=== PATIENT | female | born 1995 | race African-American/Black ===

== ENCOUNTER 2016-12-08 18:48 | Emergency (ER) | payer MEDICAID ==
[~2016-12-08] VITALS: Ht 160 cm; Wt 59.0 kg
[2016-12-08 19:25] VITALS: BP 116/78
[2016-12-08] MEDS ORDERED: Norco 7.5mg/325mg tab ORAL ONE (19:45)
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
[2016-12-08] MEDS ORDERED: IBUPROFEN600 MG ORAL (20:41)
[2016-12-08] MEDS ORDERED: CYCLOBENZAPRINE10 MG ORAL (20:41)
[2016-12-08 20:55] VITALS: BP 116/78
--- NOTE | 2016-12-09 16:17 | Diagnostic Imaging Report ---
Indication: PAIN Technique: 3 views right hand Comparison: none Findings: Surgical hardware seen reducing old healed fifth metacarpal shaft fracture. No acute fractures. No dislocations. The joint spaces are preserved Impression: No acute bony trauma
== END 2016-12-08 20:55 | disposition home or self-care (01) ==
LOC: EMR 19:26
DX: S16.1XXA Strain of muscle, fascia and tendon at neck level, initial encounter (principal); S60.041A Contusion of right ring finger without damage to nail, initial encounter; S20.212A Contusion of left front wall of thorax, initial encounter; S10.81XA Abrasion of other specified part of neck, initial encounter; Y08.89XA Assault by other specified means, initial encounter; Y92.811 Bus as the place of occurrence of the external cause; J45.909 Unspecified asthma, uncomplicated
CPT/HCPCS: 99284

== ENCOUNTER 2017-04-21 12:30 | Emergency (ER) | payer MEDICAID ==
[~2017-04-21] VITALS: Ht 157.5 cm; Wt 59.0 kg
[~2017-04-21 12:30] MED LIST: CYCLOBENZAPRINE10 MG ORAL; IBUPROFEN600 MG ORAL
[2017-04-21] MEDS: Albuterol ud Inhalation HHN ONE (13:15)
[2017-04-21] MEDS: Ipratropium 0.02% Inh Soln 2.5ml UD HHN ONE (13:16)
[2017-04-21] MEDS ORDERED: PREDNISONE20 MG ORAL (13:54)
[2017-04-21] MEDS ORDERED: ADVAIR 250-501 EACH INH (13:54)
[2017-04-21 14:10] VITALS: BP 111/74
--- NOTE | 2017-04-21 18:01 | Emergency Room Report ---
History of Present Illness General Chief Complaint: Asthma Source: Patient Present Illness HPI The patient is a 22-year-old female with a history of asthma presenting for increased shortness of breath and cough since yesterday. She states that this does feel like asthma for her. She has tried albuterol at home which has not been helping. She denies any recent travel or sick contacts. She denies other symptoms including fever, chills, dizziness, neck pain or stiffness, rash, hemoptysis, chest pain Allergies: Coded Allergies: No Known Allergies (Unverified , 12/08/16) Patient History Past Medical History: see triage record Pertinent Family History: none Last Menstrual Period: 03/20/2017 Reviewed Nursing Documentation: PMH: Agreed, PSxH: Agreed Nursing Documentation-PMH Past Medical History: No History, Except For Hx Asthma: Yes Review of Systems All Other Systems: negative except mentioned in HPI Physical Exam Vital Signs Date Time Temp Pulse Resp B/P (MAP) Pulse Ox O2 Delivery O2 Flow Rate FiO2 04/21/17 12:33 98.1 83 16 121/82 99 Room Air 04/21/17 12:45 94 Sp02 EP Interpretation: reviewed, normal General Appearance: no apparent distress, alert, GCS 15, non-toxic Head: normocephalic, atraumatic Eyes: bilateral eye normal inspection, bilateral eye PERRL ENT: hearing grossly normal, normal pharynx, no angioedema, normal voice, uvula midline Neck: full range of motion, supple/symm/no masses Respiratory: no respiratory distress, no accessory muscle use, decreased breath sounds, wheezing - bilat Cardiovascular #1: regular rate, rhythm, no edema Gastrointestinal: normal bowel sounds, non tender, soft, non-distended, no guarding, no rebound Musculoskeletal: back normal, gait/station normal, normal range of motion, non- tender Neurologic: alert, oriented x3, responsive, motor strength/tone normal, sensory intact, speech normal Psychiatric: judgement/insight normal, memory normal, mood/affect normal, no suicidal/homicidal ideation Skin: normal color, no rash, warm/dry, well hydrated Lymphatic: no adenopathy Medical Decision Making PA Attestation Dr. Kee is my supervising physician. Patient management was discussed with my supervising physician Diagnostic Impression: Primary Impression: Asthma Qualified Codes: J45.21 - Mild intermittent asthma with (acute) exacerbation ER Course The patient is a 22-year-old female with a history of asthma presenting for increased shortness of breath and cough since yesterday Differential diagnoses considered but not limited to: Asthma exacerbation, bronchitis, pneumonia, anxiety Physical exam: Vitals within normal limits. No apparent distress HEENT exam is unremarkable Lungs: Decreased breath sounds bilaterally. Chest is nontender. No respiratory distress. No accessory muscle use. The patient was given a breathing treatment and is feeling much better. Lungs sounds have improved Patient is discharged home with a prescription for oral steroids and advair and will followup with PMD. ER precautions are given Last Vital Signs Date Time Temp Pulse Resp B/P (MAP) Pulse Ox O2 Delivery O2 Flow Rate FiO2 04/21/17 14:10 98.1 100 18 111/74 97 Room Air 21 Status: improved Disposition: HOME, SELF-CARE Condition: Improved Scripts Fluticasone/Salmeterol (Advair 250-50 Diskus) 1 Each Blst.w.dev 1 PUFF INH EVERY 12 HOURS, #1 EA Prov: CARLEEN CISNEROS 04/21/17 Prednisone* (PREDNISONE*) 20 Mg Tablet 40 MG ORAL DAILY, #8 TAB Prov: CARLEEN CISNEROS 04/21/17 Referrals: [facility] (PCP) Patient Instructions: Asthma, Adult Additional Instructions: I discussed my findings with the patient. All questions and concerns have been answered. Treatment and medication compliance have been addressed. I advised the patient that they need to follow up with PMD in 3-5 days. Return to ED if symptoms worsen, new symptoms arise, or if needed for any reason. Patient verbalized understanding of discharge instructions. CARLEEN CISNEROS Apr 21, 2017 18:01
== END 2017-04-21 14:10 | disposition home or self-care (01) ==
LOC: EMR 13:20
DX: J45.909 Unspecified asthma, uncomplicated (principal)
CPT/HCPCS: 94640; 94664; 99284

== ENCOUNTER 2017-06-05 20:20 | Emergency (ER) | payer MEDICAID, OTHER ==
[~2017-06-05] VITALS: Ht 160 cm; Wt 56.7 kg
[~2017-06-05 20:20] MED LIST changes: +ADVAIR 250-501 EACH INH; +PREDNISONE20 MG ORAL
[2017-06-05 21:00] VITALS: BP 118/80
[2017-06-05] MEDS ORDERED: Norco 5mg/325mg tab ORAL ONE (21:30)
--- NOTE | 2017-06-05 22:21 | Emergency Room Report ---
History of Present Illness General Chief Complaint: Lower Back Pain or Injury Source: Patient Present Illness [facility] This is a 22-year-old female with no past medical history. She presents with chief complaint of back pain. She said she slipped on a wet floor at work 9 days ago. Laying on her back. Since then been having back pain. Try to go to a doctor on Monday but the clinic was busy. She was not seen. She came here with her mom who also complaining of back pain. No trauma since then. Worse with sitting for prolonged period. No nausea no vomiting. No incontinence of bowel or urine. Pain is 9/10. Allergies: Coded Allergies: No Known Allergies (Unverified , 12/08/16) Patient History Past Medical History: see triage record, old chart reviewed Past Surgical History: none Pertinent Family History: none Social History: Denies: smoking Last Menstrual Period: May Now: No Immunizations: other Reviewed Nursing Documentation: PMH: Agreed, PSxH: Agreed Nursing Documentation-PMH Hx Asthma: Yes Review of Systems Eye: Denies: eye pain, blurred vision ENT: Denies: ear pain, nose congestion, throat swelling Respiratory: Denies: cough, shortness of breath Cardiovascular: Denies: chest pain, palpitations Gastrointestinal: Denies: abdominal pain, diarrhea, nausea, vomiting Musculoskeletal: Reports: back pain, Denies: joint pain Skin: Denies: rash Neurological: Denies: headache, numbness Endocrine: Denies: increased thirst, increased urine Hematologic/Lymphatic: Denies: easy bruising All Other Systems: negative except mentioned in HPI Physical Exam Vital Signs Date Time Temp Pulse Resp B/P (MAP) Pulse Ox O2 Delivery O2 Flow Rate FiO2 06/05/17 20:55 98.1 75 18 112/79 99 Room Air vitals normal Sp02 EP Interpretation: reviewed, normal General Appearance: well appearing, no apparent distress, alert, other - Sitting comfortably Head: normocephalic, atraumatic Eyes: bilateral eye PERRL, bilateral eye EOMI ENT: hearing grossly normal, normal pharynx Neck: full range of motion, supple, no meningismus Respiratory: chest non-tender, lungs clear, normal breath sounds Cardiovascular #1: regular rate, rhythm, no murmur Gastrointestinal: normal bowel sounds, non tender, no mass, no organomegaly, no bruit, non-distended Musculoskeletal: back normal - No deformity. No ecchymosis. Tender to the thoracic and lumbar area., gait/station normal, normal range of motion Psychiatric: mood/affect normal Skin: warm/dry Medical Decision Making Diagnostic Impression: Primary Impression: Back contusion Qualified Codes: S20.229A - Contusion of unspecified back wall of thorax, initial encounter ER Course Patient presents with back contusion from a fall. She looks comfortable. I order x-rays but patient left with her mom. She was mad that we asked for a urine sample to confirm status. I explained to her that this is protocol because we're x-raying her lumbar spine which involved the pelvic area. Chest X-Ray Diagnostic Results Chest X-Ray Diagnostic Results : Chest X-Ray Ordered: Yes # of Views/Limited/Complete: 2 View EP Interpretation: No - Patient eloped Other X-Ray Diagnostic Results Other X-Ray Diagnostic Results : X-Ray ordered: Lumbar x-rays # of Views/Limited Vs Complete: 4 View EP Interpretation: No - Patient eloped Last Vital Signs Date Time Temp Pulse Resp B/P (MAP) Pulse Ox O2 Delivery O2 Flow Rate FiO2 06/05/17 22:07 98.1 88 18 118/80 99 Room Air Disposition: ELOPED Condition: Stable Referrals: [facility]REFERRING (PCP) GABRIELA QUINONES M.D. Jun 05, 2017 22:21
== END 2017-06-05 22:10 | disposition left against medical advice (07) ==
LOC: EMR 22:00
DX: S30.0XXA Contusion of lower back and pelvis, initial encounter (principal); W01.0XXA Fall on same level from slipping, tripping and stumbling without subsequent striking against object, initial encounter; Y92.89 Other specified places as the place of occurrence of the external cause; J45.909 Unspecified asthma, uncomplicated
CPT/HCPCS: 81025; 99283

== ENCOUNTER 2018-02-18 19:01 | Emergency (ER) | payer MEDICAID, OTHER ==
[~2018-02-18] VITALS: Ht 160 cm; Wt 58.5 kg
--- NOTE | 2018-02-18 19:23 | Emergency Room Report ---
History of Present Illness General Chief Complaint: Vaginal Source: Patient Present Illness HPI Patient presents with complaints of vaginal bleeding she reports that 2 weeks ago she finished her menstrual cycle soon after that she started to have some mild spotting now for the past 2 weeks she has felt continued vaginal spotting Denies any chest pain or short of breath denies any vomiting or diarrhea she has mild cramping with this Denies any dysuria frequency denies any fall or trauma Allergies: Coded Allergies: No Known Allergies (Unverified , 12/08/16) Patient History Past Medical History: see triage record Pertinent Family History: none Last Menstrual Period: 01/30/18 Now: No Reviewed Nursing Documentation: PMH: Agreed; PSxH: Agreed Nursing Documentation-PMH Past Medical History: No History, Except For Hx Asthma: Yes Review of Systems All Other Systems: negative except mentioned in HPI Physical Exam Vital Signs Date Time Temp Pulse Resp B/P (MAP) Pulse Ox O2 Delivery O2 Flow Rate FiO2 02/18/18 19:05 99.3 77 16 115/73 98 Room Air 99.3 Sp02 EP Interpretation: reviewed, normal General Appearance: well appearing, no apparent distress Head: normocephalic, atraumatic Eyes: bilateral eye PERRL, bilateral eye EOMI ENT: hearing grossly normal, normal pharynx, TMs + canals normal, uvula midline Neck: full range of motion, supple, no meningismus, no bony tend Respiratory: lungs clear, normal breath sounds, no rhonchi, no respiratory distress, no retraction, no accessory muscle use Cardiovascular #1: normal peripheral pulses, regular rate, rhythm, no edema, no gallop, no JVD, no murmur Gastrointestinal: normal bowel sounds, non tender, soft, no mass, no organomegaly, non-distended, no guarding, no hernia, no pulsatile mass, no rebound Genitourinary: no CVA tenderness Musculoskeletal: normal inspection Neurologic: oriented x3, responsive, photonic laboratory technician III-XII nml as tested, motor strength/ tone normal, sensory intact Psychiatric: mood/affect normal Skin: normal color, no rash, warm/dry, palpation normal Lymphatic: normal inspection, no adenopathy Medical Decision Making Diagnostic Impression: Primary Impression: Vaginal bleeding Additional Impression: Dysfunctional uterine bleeding ER Course With the patient's history and examination, multiple differentials considered, including but not limited to , ectopic , ovarian torsion, gastritis, cholecystitis, pancreatitis, appendicitis Patient's hemoglobin count is normal test is negative ultrasound does not reveal any acute pathology Patient remains hemodynamically stable and at this time is appropriate for close outpatient gynecology follow-up Labs Test 02/18/18 19:17 02/18/18 19:30 Urine Color Cecelia Urine Appearance Cloudy Urine pH 7 (4.5-8.0) Urine Specific [place] 1.010 (1.005-1.035) Urine Protein 1+ (NEGATIVE) Urine Glucose (UA) Negative (NEGATIVE) Urine Ketones Negative (NEGATIVE) Urine Blood 5+ (NEGATIVE) Urine Nitrite Negative (NEGATIVE) Urine Bilirubin Negative (NEGATIVE) Urine Ictotest Negative (NEGATIVE) Urine Urobilinogen 1 MG/DL (0.0-1.0) Urine Leukocyte Esterase 1+ (NEGATIVE) Urine RBC 15-20 /HPF (0 - 2) Urine WBC 2-4 /HPF (0 - 2) Urine Squamous Epithelial Cells Moderate /LPF (NONE/OCC) Urine Amorphous Sediment Many /LPF (NONE) Urine Bacteria Few /HPF (NONE) Urine HCG, Qualitative Negative (NEGATIVE) White Blood Count 7.9 K/UL (4.8-10.8) Red Blood Count 4.90 M/UL (4.20-5.40) Hemoglobin 12.9 G/DL (12.0-16.0) Hematocrit 39.8 % (37.0-47.0) Mean Corpuscular Volume 81 FL (80-99) Mean Corpuscular Hemoglobin 26.3 PG (27.0-31.0) Mean Corpuscular Hemoglobin Concent 32.3 G/DL (32.0-36.0) Red Cell Distribution Width 12.1 % (11.6-14.8) Platelet Count 264 K/UL (150-450) Mean Platelet Volume 7.1 FL (6.5-10.1) Neutrophils (%) (Auto) 38.9 % (45.0-75.0) Lymphocytes (%) (Auto) 45.5 % (20.0-45.0) Monocytes (%) (Auto) 7.1 % (1.0-10.0) Eosinophils (%) (Auto) 7.1 % (0.0-3.0) Basophils (%) (Auto) 1.4 % (0.0-2.0) CT/MRI/US Diagnostic Results CT/MRI/US Diagnostic Results : Impression pelvic ultrasound: nad Last Vital Signs Date Time Temp Pulse Resp B/P (MAP) Pulse Ox O2 Delivery O2 Flow Rate FiO2 02/18/18 19:05 99.3 77 16 115/73 98 Room Air 99.3 Status: improved Disposition: HOME, SELF-CARE Condition: Improved Additional Instructions: Patient is provided with the discharge instructions notified to follow up with primary doctor in the next 2-3 days otherwise return to the er with any worsening symptoms. Please note that this report is being documented using [employer] technology. This can lead to erroneous entry secondary to incorrect interpretation by the dictating instrument. Roberta Solis DO Feb 18, 2018 19:23
[2018-02-18 19:25] VITALS: BP 115/73
[2018-02-18 19:59] LABS: APPEARANCE,URINE CLOUDY; BILIRUBIN, URINE NEGATIVE (NEGATIVE); COLOR,URINE AMBER; GLUCOSE, URINE (UA) NEGATIVE (NEGATIVE); KETONES,URINE NEGATIVE (NEGATIVE); LEUKOCYTE ESTERASE ,URINE 1+ (NEGATIVE); NITRITE,URINE NEGATIVE (NEGATIVE); PH,URINE 7 (4.5-8.0); PROTEIN,URINE 1+ (NEGATIVE); UROBILINOGEN,URINE 1 MG/DL (0.0-1.0)
[2018-02-18 20:29] LABS: BASOPHILS % (AUTO) 1.4 % (0.0-2.0); EOSINOPHILS % (AUTO) 7.1 % (0.0-3.0); HEMATOCRIT 39.8 % (37.0-47.0); HEMOGLOBIN 12.9 G/DL (12.0-16.0); LYMPHOCYTES % (AUTO) 45.5 % (20.0-45.0); MEAN CORPUSCULAR VOLUME 81 FL (80-99); MONOCYTES % (AUTO) 7.1 % (1.0-10.0); NEUTROPHILS % (AUTO) 38.9 % (45.0-75.0); PLATELET COUNT 264 K/UL (150-450); RED CELL DISTRIBUTION WIDTH 12.1 % (11.6-14.8); WHITE BLOOD COUNT 7.9 K/UL (4.8-10.8)
[2018-02-18 20:50] VITALS: BP 112/71
--- NOTE | 2018-02-19 12:06 | Diagnostic Imaging Report ---
Indication:Lower abdominal and pelvic pain Technique: Grayscale and duplex Doppler imaging of the pelvis performed utilizing a transabdominal scan. The patient refused endovaginal examination. Comparison: None Findings: The size, contour, and configuration of the uterus is grossly within normal limits. The endometrium is uniformly echogenic and normal in thickness measuring about 10 mm. The ovaries are not well seen but grossly appear normal. There is no significant free fluid identified. IMPRESSION: Negative pelvic ultrasound. No obvious acute findings.
== END 2018-02-18 20:50 | disposition home or self-care (01) ==
LOC: EMR 19:30
DX: N93.8 Other specified abnormal uterine and vaginal bleeding (principal); J45.909 Unspecified asthma, uncomplicated
CPT/HCPCS: 36415; 76856; 81003; 81025; 85025; 99284

== ENCOUNTER 2018-06-19 23:49 | Emergency (ER) | payer MEDICAID ==
[~2018-06-19] VITALS: Ht 160 cm; Wt 56.7 kg
--- NOTE | 2018-06-20 00:15 | NUR ---
ED Nurse Note: RECIEVED PT FROM HOME WITH C/O FLU LIKE S/S FOR PAST 4 DAYS WITH FEVER, PT IS AWAKE, ALERT AND ORIENTED X 4, MOTHER PRESENT WITH HER, PT NOTED WITH COUGH AND CONGESTION, STATES SOB ON XERTION, COUGH IS NON-PRODUCTIVE, PT ALSO C/O BODY ACHES AND HEADACHE WITH NAUSEA, DENIES CP, OR ANY OTHER COMPLAITNS.
[2018-06-20] MEDS ORDERED: IBUPROFEN600 MG ORAL (00:51)
--- NOTE | 2018-06-20 00:52 | Emergency Room Report ---
History of Present Illness General Chief Complaint: Flu Like Symptoms Source: Patient Present Illness HPI This is a 23-year-old female with no past mental history. She presents with chief complaint of cough congestion, chest pain, fever and chills. Onset for the last 3-4 days. No nausea no vomiting. Pain is diffuse. Said pain is from her head to her toes. Has not take any medicine for it. Denies any other complaint. Allergies: Coded Allergies: No Known Allergies (Unverified , 12/08/16) Patient History Past Medical History: see triage record, old chart reviewed Past Surgical History: none Pertinent Family History: none Social History: Denies: smoking Last Menstrual Period: Jun Now: No Immunizations: other Reviewed Nursing Documentation: PMH: Agreed; PSxH: Agreed Nursing Documentation-PMH Hx Asthma: Yes Review of Systems Constitutional: Reports: fever, malaise Eye: Denies: eye pain, blurred vision ENT: Denies: ear pain, nose congestion, throat swelling Respiratory: Reports: cough; Denies: shortness of breath Cardiovascular: Reports: chest pain; Denies: palpitations Gastrointestinal: Denies: abdominal pain, diarrhea, nausea, vomiting Musculoskeletal: Reports: muscle pain, muscle stiffness; Denies: back pain, joint pain Skin: Denies: rash Neurological: Denies: headache, numbness Endocrine: Denies: increased thirst, increased urine Hematologic/Lymphatic: Denies: easy bruising All Other Systems: negative except mentioned in HPI Physical Exam Vital Signs Date Time Temp Pulse Resp B/P (MAP) Pulse Ox O2 Delivery O2 Flow Rate FiO2 06/19/18 23:53 101.8 101 18 106/72 96 Room Air patient with fever Sp02 EP Interpretation: reviewed, normal General Appearance: well appearing, no apparent distress, alert Head: normocephalic, atraumatic Eyes: bilateral eye PERRL, bilateral eye EOMI ENT: hearing grossly normal, normal pharynx Neck: full range of motion, supple, no meningismus Respiratory: chest non-tender, lungs clear, normal breath sounds Cardiovascular #1: regular rate, rhythm, no murmur Gastrointestinal: normal bowel sounds, non tender, no mass, no organomegaly, no bruit, non-distended Musculoskeletal: back normal, gait/station normal, normal range of motion Psychiatric: mood/affect normal Skin: warm/dry Medical Decision Making Diagnostic Impression: Primary Impression: Influenza-like symptoms ER Course Patient with influenza-like symptoms. She is outside of the window for Tamiflu treatment. She has no risk factor to warrant treatment. She looks well. No evidence of any meningitis, sepsis, pneumonia to name a few. We'll discharge home. Last Vital Signs Date Time Temp Pulse Resp B/P (MAP) Pulse Ox O2 Delivery O2 Flow Rate FiO2 06/19/18 23:53 101.8 101 18 106/72 96 Room Air Status: unchanged Disposition: HOME, SELF-CARE Condition: Stable Scripts Ibuprofen* (MOTRIN*) 600 Mg Tablet 600 MG ORAL THREE TIMES A DAY, #30 TAB 0 Refills Prov: Max Wei MD 06/20/18 Additional Instructions: Rest. Increase fluids. Motrin as needed for fever and pain. Follow-up with your doctor in a week if not better. Return if symptom worsen or increasing fever. Max Wei MD Jun 20, 2018 00:52
[2018-06-20 01:15] VITALS: BP 111/59
--- NOTE | 2018-06-20 01:20 | NUR ---
ED Nurse Note: PT BEING D/C TO HOME, MEDS GIVEN SLIGHTLY EFFECTIVE WITH PAIN LEVEL AND TEMP DECREASING, PT IS AMBULATORY, GIVEN F/U INFO, AFTER CARE INSTRUCTIONS AND RE-VERBALIZES PROPER MEDICATION ADMINISTRATION AND S/S TO MONITOR FOR, PT ARMBAND REMOVED, WITH MOTHER, NAD NOTED DURING D/C TO HOME,
[2018-06-20 01:30] VITALS: BP 111/59
== END 2018-06-20 01:30 | disposition home or self-care (01) ==
LOC: EMR 06-20 00:20
DX: R05 Cough (principal); R07.9 Chest pain, unspecified; R09.81 Nasal congestion; R50.9 Fever, unspecified; R53.81 Other malaise; F17.200 Nicotine dependence, unspecified, uncomplicated; J45.909 Unspecified asthma, uncomplicated; M79.10 Myalgia, unspecified site; R51 Headache; R11.0 Nausea
CPT/HCPCS: 99282; J7512

== ENCOUNTER 2018-07-09 23:36 | Emergency (ER) | payer MEDICAID ==
[~2018-07-09] VITALS: Ht 160 cm; Wt 59.0 kg
[2018-07-09] MEDS ORDERED: VENTOLIN HFA18 GM INH (23:57)
[2018-07-10 00:29] VITALS: BP 118/72
[2018-07-10 00:30] VITALS: BP 118/72
[2018-07-10] MEDS ORDERED: Methocarbamol 750mg tab ORAL ONE (00:30)
[2018-07-10] MEDS ORDERED: LIDODERM700 M1 TOPIC (00:36)
[2018-07-10] MEDS ORDERED: ROBAXIN-750750 MG PO (00:36)
[2018-07-10] MEDS ORDERED: IBUPROFEN600 MG ORAL (00:36)
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
== END 2018-07-10 00:46 | disposition home or self-care (01) ==
LOC: EMR 07-10 00:22
DX: S29.012A Strain of muscle and tendon of back wall of thorax, initial encounter (principal); V43.52XA Car driver injured in collision with other type car in traffic accident, initial encounter; Y92.410 Unspecified street and highway as the place of occurrence of the external cause; J45.909 Unspecified asthma, uncomplicated
CPT/HCPCS: 99282

== ENCOUNTER 2019-04-16 18:02 | Emergency (ER) | payer MEDICAID ==
[~2019-04-16] VITALS: Ht 160 cm; Wt 56.7 kg
[~2019-04-16 18:02] MED LIST changes: +LIDODERM700 M1 TOPIC; +ROBAXIN-750750 MG PO; +VENTOLIN HFA18 GM INH
[2019-04-16 18:12] VITALS: BP 109/81
--- NOTE | 2019-04-16 18:12 | NUR ---
ED Nurse Note: Patient arrived to ED from home complaining of cough and shortness of breath x 3 days. Patient is AxO x 4, no s/s of acute distress. Bed in lowest position.
--- NOTE | 2019-04-16 18:32 | Emergency Room Report ---
History of Present Illness General Chief Complaint: Flu Like Symptoms Source: Patient, Family Member Present Illness HPI Disclaimer: Please note that this report is being documented using [employer] technology. This can lead to erroneous entry secondary to incorrect interpretation by the dictating instrument. HPI: 24-year-old female with a history of asthma presents for evaluation of cough and shortness of breath. Symptoms have been present for approximately 2 days. She noted initial sore throat, subjective fevers, chills, diffuse myalgias and persistent nonproductive cough. Has been using albuterol inhaler once an hour due to persistent shortness of breath and wheezing. Also helps her cough. She has been waking up at night coughing. Denies any hematemesis but did have one episode of posttussive emesis earlier today. Overall she feels like her inhaler is no longer providing adequate relief. She takes no steroids, no other medications for asthma. Otherwise in her usual state of health. No respiratory distress was reported. Did not receive a flu vaccine this year PMH: Asthma PSH: Denies Allergies: Denies Social Hx: Denies Allergies: Coded Allergies: No Known Allergies (Unverified , 12/08/16) Patient History Last Menstrual Period: 04/16/19 Now: No Nursing Documentation-PMH Hx Asthma: Yes Review of Systems All Other Systems: negative except mentioned in HPI Physical Exam Vital Signs Date Time Temp Pulse Resp B/P (MAP) Pulse Ox O2 Delivery O2 Flow Rate FiO2 04/16/19 18:08 99.1 105 20 109/81 (90) 97 Room Air General: Awake and alert, no acute distress HEENT: NC/AT. EOMI. Cardiovascular: RRR. S1 and S2 normal. No murmur appreciated Resp: Normal work of breathing. Intermittent cough while in the room. Nonproductive. Inspiratory wheezes at the lower lung bases bilaterally. No crackles. Abdomen: Abdomen is soft, nondistended. Nontender Skin: Intact. No abrasions, laceration or rash over the exposed skin MSK: Normal tone and bulk. Moving all extremities. No obvious deformity. Neuro: Awake and alert. Mentating appropriately. Medical Decision Making Diagnostic Impression: Primary Impression: Asthma exacerbation Additional Impression: Viral syndrome ER Course 24-year-old female presents with mild asthma exacerbation likely in the setting of a viral syndrome. We will obtain an x-ray to rule out infiltrate however the patient will be treated with breathing treatments and prednisone. Vital signs are stable including oxygen sats. She is in no distress. Anticipate discharge home. Chest X-Ray Diagnostic Results Chest X-Ray Diagnostic Results : Chest X-Ray Ordered: Yes # of Views/Limited/Complete: 1 View Indication: Shortness of Breath Interpretation: no consolidation, no effusion, no pneumothorax, no acute cardiopulmonary disease, other - Bilateral piercings Impression: No acute disease Electronically Signed by: Electronically signed by Dr. Anmol Del Rosario Reevaluation Time: 19:24 Last Vital Signs Date Time Temp Pulse Resp B/P (MAP) Pulse Ox O2 Delivery O2 Flow Rate FiO2 04/16/19 18:12 97 20 Room Air 04/16/19 18:12 99.1 109/81 97 Reevaluation Impression No infiltrate on x-ray. Patient received breathing treatments and prednisone. Symptomatically improved. No wheezing. She will be discharged home with additional few days of prednisone and Tessalon Perles. Follow-up with her PMD to discuss her current asthma regimen. Discussed reasons to return to the emergency department. She understands agrees with this treatment plan. Disposition: HOME, SELF-CARE Condition: Improved Scripts Benzonatate* (TESSALON PERLE*) 100 Mg Capsule 100 MG ORAL THREE TIMES A DAY for 5 Days, #30 PERLE Prov: Anmol Del Rosario MD 04/16/19 Prednisone* (PREDNISONE*) 20 Mg Tablet 40 MG ORAL DAILY for 3 Days, #6 TAB Prov: Anmol Del Rosario MD 04/16/19 Albuterol Sulfate (VENTOLIN HFA) 18 Gm Hfa.aer.ad 2 PUFFS INH EVERY 6 HOURS, #18 GM 0 Refills Prov: Anmol Del Rosario MD 04/16/19 Anmol Del Rosario MD Apr 16, 2019 18:32
[2019-04-16] MEDS: Albuterol/Ipratropium 3ml neb HHN SCH ×4 (18:51→19:15)
--- NOTE | 2019-04-16 18:59 | NUR ---
HAND-OFF: Report given to Ashwin Willis RN.
--- NOTE | 2019-04-16 19:00 | NUR ---
ED Nurse Note: Received report from Abel RICHARDSON. Pt BAUTISTA, VSS. Will monitor patient.
[2019-04-16 19:05] VITALS: BP 107/78
[2019-04-16] MEDS ORDERED: VENTOLIN HFA18 GM INH (19:08)
[2019-04-16] MEDS ORDERED: PREDNISONE20 MG ORAL (19:08)
[2019-04-16] MEDS ORDERED: TESSALON PERLE100 MG ORAL (19:25)
[2019-04-16 19:30] VITALS: BP 106/76
--- NOTE | 2019-04-16 19:30 | NUR ---
ER DISCHARGE NOTE: Patient is cleared to be discharged per ERMD, pt is aox4, on room air, with stable vital signs. pt was given dc and prescription instructions, pt was able to verbalize understanding, pt id band removed without complications. pt is able to ambulate with steady gait. pt took all belongings.
--- NOTE | 2019-04-17 11:25 | Diagnostic Imaging Report ---
Indication: Cough Technique: One view of the chest Comparison: none Findings: Lungs and pleural spaces are clear. Heart size is normal. Impression: No acute process
== END 2019-04-16 19:30 | disposition home or self-care (01) ==
LOC: EMR 18:25
DX: J45.901 Unspecified asthma with (acute) exacerbation (principal); B34.9 Viral infection, unspecified
CPT/HCPCS: 71045; 94640; 94664; J7512; Z7502; 99284; J7620